=== PATIENT | male | born 1970 | race Two or more races ===

== ENCOUNTER 2025-08-28 18:03 | Emergency (ER) | payer MEDICAID, SELFPAY ==
[2025-08-28 18:22] VITALS: BP 178/124; PULSE 94; RESP 18; TEMP 36.8; O2SAT 96; BMI 36.3
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
[2025-08-28] MEDS: HYDROcodone/APAP 5/325 TABLET 1 TAB PO (18:34)
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
[2025-08-28 20:12] VITALS: BP 144/89; PULSE 78
== END 2025-08-28 21:26 | disposition home or self-care (01) ==
PROVIDERS: Emergency Provider Emergency Medicine
DX: S13.4XXA Sprain of ligaments of cervical spine, initial encounter (principal); S09.90XA Unspecified injury of head, initial encounter; R07.9 Chest pain, unspecified; M25.511 Pain in right shoulder; V89.2XXA Person injured in unspecified motor-vehicle accident, traffic, initial encounter
CPT/HCPCS: 70450; 71250; 72125; 73030; 99284; A9270

== ENCOUNTER → 2025-10-02 | Outpatient (CLI) | payer MEDICAID, SELFPAY ==
--- NOTE | 2025-10-02 08:45 | XR_ITS ---
Examination: Abdomen sonogram, complete Date and time of exam: October 02, 2025, 0917 hours INDICATIONS: Elevated liver function test on laboratory examination 2 months ago. Technique: Multiple real-time grayscale transabdominal sonographic images of the abdomen have been obtained. Findings: Absent gallbladder Normal common bile duct 0.4 cm Pancreatic head 2.7 cm Aorta not enlarged. Liver 19.3 cm fatty infiltration Normal hepatopetal portal venous flow Patent IVC Right kidney 11.1 cm renal cortex 1.5 cm Left kidney 12.4 cm renal cortex 2.5 cm Mild renal scarring Spleen 10.2 cm IMPRESSION: Normal common bile duct Moderate hepatomegaly Mild bilateral renal scar formation
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
== END | disposition home or self-care (01) ==
PROVIDERS: PCP Student in an Organized Health Care Education/Training Program; Referring Provider Student in an Organized Health Care Education/Training Program; Visit Provider Student in an Organized Health Care Education/Training Program
DX: R16.0 Hepatomegaly, not elsewhere classified (principal); K76.0 Fatty (change of) liver, not elsewhere classified; R91.8 Other nonspecific abnormal finding of lung field
CPT/HCPCS: 71046; 76700